=== PATIENT | female | born 1970 | race Caucasian/White ===

== ENCOUNTER 2020-10-01 12:26 | Observation (INO) | payer BC ==
[2020-10-01] MEDS ORDERED: Sodium Chloride 0.9% 1,000 ML IV ONE (12:31)
[2020-10-01] MEDS ORDERED: Sodium Chloride 0.9% 2.5 ML Syringe FLUSH PRN (12:31)
[2020-10-01] MEDS ORDERED: Sodium Chloride 0.9% 10 ML Syringe FLUSH PRN (12:31)
--- NOTE | 2020-10-01 12:45 | EDM.PDOC ---
ED HPI GENERAL MEDICAL PROBLEM - General Chief Complaint: Neuro Symptoms/Deficits Stated Complaint: STROKE Time Seen by Provider: 10/01/20 12:31 - History of Present Illness INITIAL COMMENTS - FREE TEXT/NARRATIVE: HISTORY AND PHYSICAL: History of present illness: This is a 50-year-old female with no significant past medical history who presents ER today by EMS secondary to acute onset of left upper extremity weakness with left facial numbness and hearing loss that started prior to taking a nap earlier today. EMS reports upon their arrival she had a left facial droop as well as weakness to her left upper extremity with inability to grasp with significant pronator drift on the left side. Patient reports that she went to bed last night was feeling well and when she woke up today she was feeling well. She reports that she decided take a nap earlier today when she woke up her symptoms had initiated. Patient denies any recent fevers, shakes, chills, nausea, vomiting, diarrhea, dysuria, frequency, urgency, chest pain, shortness of breath, abdominal pain. Patient denies any weakness to her upper or lower extremities at this time and reports to me that her main symptom is numbness to her left face as well as decreased hearing out of her left ear. Patient denies any history of hypertension, diabetes, liver, lung, kidney, heart, prior strokes, neurological disorders in the past. Patient reports that she did have small amount of alcohol last night usually is not drink very much. Patient denies any drugs. Patient admits to use of tobacco. Review of systems: As per history of present illness and below otherwise all systems reviewed and negative. Past medical history: As per history of present illness and as reviewed below otherwise noncontributory. Surgical history: As per history of present illness and as reviewed below otherwise noncontributory. Social history: No reported history of drug abuse. Family history: As per history of present illness and as reviewed below otherwise noncontribu tory. Physical exam: This patient was seen and evaluated during the 2019 SARS-CoV-2 novel coronavirus pandemic period. Community viral transmission is ongoing at time of this encounter and the emergency department is operating under pandemic response procedures. Constitutional: Patient is oriented to person, place, and time. Appears well- developed and well-nourished. No distress. HEENT: Moist mucous membranes Head: Normocephalic and atraumatic Eyes: Right eye exhibits no discharge. Left eye exhibits no discharge. No scleral icterus Neck: Normal range of motion. No tracheal deviation present. Cardiovascular: Normal rate and regular rhythm. Pulmonary: Effort normal, no respiratory distress. Abdominal: No distention Musculoskeletal: Normal range of motion Neurologic: Alert and oriented to person, place and time. Skin: [place], warm and dry. Psychiatric: Normal mood and affect. Behavior is normal. Judgment and thought content normal. Nursing note and vital signs have been reviewed Neuro: A&Ox3. Cranial nerves II-XII grossly intact, 5/5 strength to bilateral upper and lower extremities, sensation intact to bilateral upper and lower extremities, no nystagmus, PERRLA, EOMI, normal speech, proprioception intact to bilateral lower extremities, normal finger to nose test, gait normal. Patient's speech for the most part is completely normal with occasional episodes of stuttering words but her words appear to be clear without any slurring. Patient reports that she does feel numbness to her left side of her face and that she has decreased hearing from her left ear although she is able to hear. 1a) Level of consciousness: 0=alert; 1=not alert but arousable by minor stimulation; 2=not alert: requires repeated stimulation to attend or is obtunded and requires strong or painful stimulation to make movements; 3=responds only with reflex motor or autonomic effects or totally unresponsive, flaccid and areflexic SCORE 0 1b) LOC questions ("what month is it?", "how old are you?"): 0=answers both correctly; 1=answers one correctly; 2=answers neither correctly SCORE 0 1c) LOC commands (command patient to "open and close your eyes. Machine Biller and release your hand.): 0=performs both correctly; 1=performs one correctly; 2=performs neither correctly SCORE 0 2) Best gaze ("follow my finger"): 0=normal; 1=partial gaze palsy; 2=forced deviation or total gaze paresis SCORE 0 3) Visual brown (use confrontation, finger counting, or visual threat. confront upper/lower quadrants of visual field): 0=no visual loss; 1=partial hemianopsia; 2=complete hemianopsia; 3=bilateral hemianopsia SCORE 0 4) Facial palsy (by words or pantomime, encourage patient to: "Show me your teeth. Raise your eyebrows. Close your eyes."): 0=normal symmetrical movement; 1=minor paralysis (flattened nasolabial fold, asymmetry on smiling); 2=partial paralysis (lower face); 3=complete paralysis SCORE 0 5) Arm motor (alternately position patient's arms. extend each arm with palms down [90 degrees if sitting, 45 degrees if supine] - test each arm in turn and start with nonparetic arm first): 0=no drift; 1=drift (arm falls before 10 seconds); 2=some effort vs. gravity; 3=no effort vs. gravity; 4=no movement; UN (untestable)=amputation or joint fusion SCORE 0 6) Leg motor (alternately position patient's legs. extend each leg [30 degrees, always while supine] - test nonparetic leg first): 0=no drift; 1=drift (leg falls before 5 seconds); 2=some effort vs. gravity; 3= no effort vs. gravity; 4=no movement; UN=amputation or joint fusion SCORE 0 7) Limb ataxia (ask patient [eyes open] to: "touch your finger to your nose. touch your heel to your dickinson"): 0=absent; 1=present in one limb; 2=present in two or more limbs; UN=amputation or joint fusion SCORE 0 8) Sensory (test as many body parts as possible [arms and not hands, legs, trunk, face] for sensation using pinprick or noxious stimuli [in the obtunded or aphasic patient]): 0=normal; 1=mild to moderate sensory loss; 2=severe to total sensory loss SCORE 1 9) Best language (using pictures and a sentence list, ask patient to "describe what you see in this picture. Name the items in this picture. Read these sentences"): 0=no aphasia, 1=mild to moderate aphasia; 2=severe aphasia; 3=mute, global aphasia SCORE 0 10) Dysarthria (using a simple word list, ask patient to: "read these words" or "repeat these words"): 0=normal articulation; 1=mild to moderate dysarthria; 2=severe dysarthria; UN=intubated or other physical barrier SCORE 0 11) Extinction and inattention (sufficient information to determine these scores may have been obtained during the prior testing): 0=no abnormality; 1=visual, tactile, auditory, spatial or personal inattention; 2=profound megan-inattention or extinction to more than one modality SCORE 0 TOTAL NIHSS Score:1 Diagnostics: Therapeutics: [] Assessment and plan: This is a 50-year-old female who presents ER today with signs and symptoms conc erning for possible stroke. Upon patient's arrival to the ED her NIH score was 1 secondary to numbness to her left cheek but otherwise she has a normal neurological exam. Patient had no pronator drift. Patient's [id number] test was normal. Patient has normal rapid alternating motion. Patient's pupils are equally round and reactive to light. Extraocular motions are intact. Patient has no visual field deficits. Patient has no nystagmus. Patient has normal speech pattern. Given EMSs report of weakness to her left upper extremity with a left pronator drift and left facial droop, the patient will initiate a stroke protocol. We will obtain a CT scan of her head along with a CTA of her head and neck given the weakness to her left upper extremity being greater than left lower extremity per EMS report with associated facial droop. Patient's CT scan was reviewed by me prior to the CTA and there is no evidence of acute bleed. Patient has been reevaluated by me. After reevaluating patient, she reports that she was normal when she woke up this morning. She reports that she was experiencing some tingling to the left side of her face yesterday before going to bed. She reports when she woke up she had no new symptoms. She reports that at approximately 9 AM she went back to bed to take a nap and when she woke up she identified her symptoms of left upper extremity weakness as well as left facial numbness. She reports that her symptoms do not last very long and that upon arrival to the ED her weakness had completely resolved. Patient CT scan as well as CTA are negative for any acute pathology. Patient's labs are all normal except for urine drug screen that is positive for methamphetamine and amphetamine. Patient will be admitted for ops under Service of Dr. Pitts Critical Care: The high probability of sudden, clinically significant deterioration in the patient's condition required the highest level of my preparedness to intervene urgently. The services I provided to this patient were to treat and/or prevent clinically significant deterioration. Services included the following: chart data review, reviewing nursing notes and/or old charts, documentation time, mental health consultant collaboration regarding findings and treatment options, medication orders and management, direct patient care, vital sign assessments and ordering, interpreting and reviewing diagnostic studies/lab tests. Aggregate critical care time includes only time during which I was engaged inwork directly related to the patient's care, as described above, whether at the bedside or elsewhere in the Emergency Department. It did not include time spent performing other reported procedures or the services of residents, students, nurses or physician assistants. Critical Care Time: 35 minutes Definitive disposition and diagnosis as appropriate pending reevaluation and review of above. - Related Data Allergies Allergy/AdvReac Type Severity Reaction Status Date / Time Penicillins Allergy Hives Verified 10/01/20 12:28 Home Meds: Home Meds Acetaminophen/HYDROcodone [[place] 325-5 MG] 1 tab PO Q4H PRN #30 tablet 04/13/18 [Rx] Past Medical History HEENT History: Reports: Other (See Below) Other HEENT History: wears glasses Gastrointestinal History: Reports: Other (See Below) Other Gastrointestinal History: occasional heartburn Genitourinary History: Reports: None [employer] History: Reports: Other (See Below) Musculoskeletal History: Reports: Fracture Other Musculoskeletal History: 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 Immunologic History: Reports: Other (See Below) Other Immunologic History: hx MRSA - Past Surgical History Head Surgeries/Procedures: Reports: None Female Surgical History: Reports: Breast Biopsy Other Female Surgeries/Procedures: hx rt breast lumpectomy Dermatological Surgical History: Reports: Other (See Below) ED ROS GENERAL - Review of Systems Review Of Systems: See Below ED EXAM, GENERAL - Physical Exam Exam: See Below Course - Vital Signs Last Recorded V/S: Last Vital Signs Temp 98.2 F 10/01/20 13:15 Pulse 90 10/01/20 13:40 Resp 18 10/01/20 13:40 BP 117/88 10/01/20 13:40 Pulse Ox 98 10/01/20 13:40 - Orders/Labs/Meds Orders: Active Orders 24 hr Category Date Time Status Patient Status [ADT] Routine ADT 10/01/20 13:41 Ordered Assess Neurological Status [RC] ASDIRECTED Care 10/01/20 12:33 Active Bedrest [RC] ASDIRECTED Care 10/01/20 12:33 Active Cardiac Monitoring [RC] . DIRECTED Care 10/01/20 12:33 Active EKG Documentation Completion [RC] AM Care 10/01/20 12:31 Active Height and Weight [RC] UPON Care 10/01/20 12:33 Active Initiate Acute Stroke Protocol [RC] STAT Care 10/01/20 12:33 Active NIH Stroke Scale [RC] ASDIRECTED Care 10/01/20 12:33 Active Nursing Bedside Swallow Screen [RC] ASDIRECTED Care 10/01/20 12:33 Active Oxygen Therapy [RC] ASDIRECTED Care 10/01/20 12:33 Active Stroke Education, General [RC] Click to Edit Care 10/01/20 12:33 Active Vital Signs [RC] Q15M Care 10/01/20 12:33 Active CORONAVIRUS COVID-19 MESERET [MOLEC] Stat Lab 10/01/20 12:31 Ordered UA W/MICROSCOPIC [URIN] Stat Lab 10/01/20 13:01 Results Sodium Chloride 0.9% [Normal Saline] 1,000 ml Med 10/01/20 12:31 Active IV .Bolus Sodium Chloride 0.9% [Saline Flush] Med 10/01/20 12:31 Active 10 ml FLUSH ASDIRECTED PRN Sodium Chloride 0.9% [Saline Flush] Med 10/01/20 12:31 Active 2.5 ml FLUSH ASDIRECTED PRN Saline Lock Insert [OM.PC] Stat Oth 10/01/20 12:31 Ordered Medication Orders Sodium Chloride (Normal Saline) 1,000 mls @ 999 mls/hr IV .Bolus ONE Stop: 10/01/20 13:31 Last Admin: 10/01/20 12:51 Dose: 999 mls/hr Documented by: [id number] Sodium Chloride (Sodium Chloride 0.9% 10 Ml Syringe) 10 ml FLUSH ASDIRECTED PRN PRN Reason: Keep Vein Open Last Admin: 10/01/20 12:51 Dose: 10 ml Documented by: [id number] Sodium Chloride (Sodium Chloride 0.9% 2.5 Ml Syringe) 2.5 ml FLUSH ASDIRECTED PRN PRN Reason: Keep Vein Open Last Admin: 10/01/20 12:51 Dose: 2.5 ml Documented by: [id number] Labs: Laboratory Tests 10/01/20 10/01/20 10/01/20 Range/Units 12:28 12:28 12:28 WBC 5.30 (4.0-11.0) K/uL RBC 4.51 (4.30-5.90) M/uL Hgb 14.4 (12.0-16.0) g/dL Hct 42.0 (36.0-46.0) % MCV 93.1 (80.0-98.0) fL MCH 31.9 (27.0-32.0) pg MCHC 34.3 (31.0-37.0) g/dL RDW Std Deviation 47.1 (28.0-62.0) fl RDW Coeff of Sherry 14 (11.0-15.0) % Plt Count 289 (150-400) K/uL MPV 10.20 (7.40-12.00) fL Neut % (Auto) 57.1 (48.0-80.0) % Lymph % (Auto) 36.2 (16.0-40.0) % [place] % (Auto) 5.7 (0.0-15.0) % Eos % (Auto) 0.8 (0.0-7.0) % Baso % (Auto) 0.2 (0.0-1.5) % Neut # (Auto) 3.0 (1.4-5.7) K/uL Lymph # (Auto) 1.9 (0.6-2.4) K/uL [place] # (Auto) 0.3 (0.0-0.8) K/uL Eos # (Auto) 0.0 (0.0-0.7) K/uL Baso # (Auto) 0.0 (0.0-0.1) K/uL Nucleated RBC % 0.0 /100WBC Nucleated RBCs # 0 K/uL ESR (0-19) mm/hr INR APTT (18.6-31.3) SEC Sodium 140 (136-145) mmol/L Potassium 3.3 L (3.5-5.1) mmol/L Chloride 103 (98-107) mmol/L Carbon Dioxide 23.9 (21.0-32.0) mmol/L BUN 7 (7.0-18.0) mg/dL Creatinine 0.8 (0.6-1.0) mg/dL Est Cr Clr Drug Dosing TNP Estimated GFR (MDRD) > 60.0 ml/min Glucose 139 H (74-106) mg/dL Calcium 8.6 (8.5-10.1) mg/dL Total Bilirubin 0.3 (0.2-1.0) mg/dL AST 36 (15-37) IU/L ALT 44 (14-63) IU/L Alkaline Phosphatase 66 (46-116) U/L Troponin I < 0.050 (0.000-0.056) ng/mL Total Protein 7.0 (6.4-8.2) g/dL Albumin 3.8 (3.4-5.0) g/dL Globulin 3.2 (2.6-4.0) g/dL Albumin/Globulin Ratio 1.2 (0.9-1.6) TSH 3rd Generation 0.82 (0.36-3.74) uIU/mL HCG, Qual NEGATIVE (NEG) Urine Color Urine Appearance Urine pH (5.0-8.0) Ur Specific [place] (1.001-1.035) Urine Protein (NEGATIVE) mg/dL Urine Glucose (UA) (NEGATIVE) mg/dL Urine Ketones (NEGATIVE) mg/dL Urine Occult Blood (NEGATIVE) Urine Nitrite (NEGATIVE) Urine Bilirubin (NEGATIVE) Urine Urobilinogen (<2.0) EU/dL Ur Leukocyte Esterase (NEGATIVE) Urine Opiates Screen (NEGATIVE) Ur Oxycodone Screen (NEGATIVE) Urine Methadone Screen (NEGATIVE) Ur Barbiturates Screen (NEGATIVE) Ur Phencyclidine Scrn (NEGATIVE) Ur Amphetamine Screen (NEGATIVE) U Methamphetamines Scrn (NEGATIVE) U Benzodiazepines Scrn (NEGATIVE) U Cocaine Metab Screen (NEGATIVE) U Marijuana (THC) Screen (NEGATIVE) Ethyl Alcohol 149 mg/dL 10/01/20 10/01/20 10/01/20 Range/Units 12:28 12:28 12:28 WBC (4.0-11.0) K/uL RBC (4.30-5.90) M/uL Hgb (12.0-16.0) g/dL Hct (36.0-46.0) % MCV (80.0-98.0) fL MCH (27.0-32.0) pg MCHC (31.0-37.0) g/dL RDW Std Deviation (28.0-62.0) fl RDW Coeff of Sherry (11.0-15.0) % Plt Count (150-400) K/uL MPV (7.40-12.00) fL Neut % (Auto) (48.0-80.0) % Lymph % (Auto) (16.0-40.0) % [place] % (Auto) (0.0-15.0) % Eos % (Auto) (0.0-7.0) % Baso % (Auto) (0.0-1.5) % Neut # (Auto) (1.4-5.7) K/uL Lymph # (Auto) (0.6-2.4) K/uL [place] # (Auto) (0.0-0.8) K/uL Eos # (Auto) (0.0-0.7) K/uL Baso # (Auto) (0.0-0.1) K/uL Nucleated RBC % /100WBC Nucleated RBCs # K/uL ESR 6 (0-19) mm/hr INR 1.04 APTT 24.0 (18.6-31.3) SEC Sodium (136-145) mmol/L Potassium (3.5-5.1) mmol/L Chloride (98-107) mmol/L Carbon Dioxide (21.0-32.0) mmol/L BUN (7.0-18.0) mg/dL Creatinine (0.6-1.0) mg/dL Est Cr Clr Drug Dosing Estimated GFR (MDRD) ml/min Glucose (74-106) mg/dL Calcium (8.5-10.1) mg/dL Total Bilirubin (0.2-1.0) mg/dL AST (15-37) IU/L ALT (14-63) IU/L Alkaline Phosphatase (46-116) U/L Troponin I (0.000-0.056) ng/mL Total Protein (6.4-8.2) g/dL Albumin (3.4-5.0) g/dL Globulin (2.6-4.0) g/dL Albumin/Globulin Ratio (0.9-1.6) TSH 3rd Generation (0.36-3.74) uIU/mL HCG, Qual (NEG) Urine Color Urine Appearance Urine pH (5.0-8.0) Ur Specific [place] (1.001-1.035) Urine Protein (NEGATIVE) mg/dL Urine Glucose (UA) (NEGATIVE) mg/dL Urine Ketones (NEGATIVE) mg/dL Urine Occult Blood (NEGATIVE) Urine Nitrite (NEGATIVE) Urine Bilirubin (NEGATIVE) Urine Urobilinogen (<2.0) EU/dL Ur Leukocyte Esterase (NEGATIVE) Urine Opiates Screen (NEGATIVE) Ur Oxycodone Screen (NEGATIVE) Urine Methadone Screen (NEGATIVE) Ur Barbiturates Screen (NEGATIVE) Ur Phencyclidine Scrn (NEGATIVE) Ur Amphetamine Screen (NEGATIVE) U Methamphetamines Scrn (NEGATIVE) U Benzodiazepines Scrn (NEGATIVE) U Cocaine Metab Screen (NEGATIVE) U Marijuana (THC) Screen (NEGATIVE) Ethyl Alcohol mg/dL 10/01/20 10/01/20 Range/Units 13:01 13:01 WBC (4.0-11.0) K/uL RBC (4.30-5.90) M/uL Hgb (12.0-16.0) g/dL Hct (36.0-46.0) % MCV (80.0-98.0) fL MCH (27.0-32.0) pg MCHC (31.0-37.0) g/dL RDW Std Deviation (28.0-62.0) fl RDW Coeff of Sherry (11.0-15.0) % Plt Count (150-400) K/uL MPV (7.40-12.00) fL Neut % (Auto) (48.0-80.0) % Lymph % (Auto) (16.0-40.0) % [place] % (Auto) (0.0-15.0) % Eos % (Auto) (0.0-7.0) % Baso % (Auto) (0.0-1.5) % Neut # (Auto) (1.4-5.7) K/uL Lymph # (Auto) (0.6-2.4) K/uL [place] # (Auto) (0.0-0.8) K/uL Eos # (Auto) (0.0-0.7) K/uL Baso # (Auto) (0.0-0.1) K/uL Nucleated RBC % /100WBC Nucleated RBCs # K/uL ESR (0-19) mm/hr INR APTT (18.6-31.3) SEC Sodium (136-145) mmol/L Potassium (3.5-5.1) mmol/L Chloride (98-107) mmol/L Carbon Dioxide (21.0-32.0) mmol/L BUN (7.0-18.0) mg/dL Creatinine (0.6-1.0) mg/dL Est Cr Clr Drug Dosing Estimated GFR (MDRD) ml/min Glucose (74-106) mg/dL Calcium (8.5-10.1) mg/dL Total Bilirubin (0.2-1.0) mg/dL AST (15-37) IU/L ALT (14-63) IU/L Alkaline Phosphatase (46-116) U/L Troponin I (0.000-0.056) ng/mL Total Protein (6.4-8.2) g/dL Albumin (3.4-5.0) g/dL Globulin (2.6-4.0) g/dL Albumin/Globulin Ratio (0.9-1.6) TSH 3rd Generation (0.36-3.74) uIU/mL HCG, Qual (NEG) Urine Color YELLOW Urine Appearance HAZY Urine pH 6.5 (5.0-8.0) Ur Specific [place] <= 1.005 (1.001-1.035) Urine Protein NEGATIVE (NEGATIVE) mg/dL Urine Glucose (UA) NEGATIVE (NEGATIVE) mg/dL Urine Ketones NEGATIVE (NEGATIVE) mg/dL Urine Occult Blood MODERATE H (NEGATIVE) Urine Nitrite NEGATIVE (NEGATIVE) Urine Bilirubin NEGATIVE (NEGATIVE) Urine Urobilinogen 0.2 (<2.0) EU/dL Ur Leukocyte Esterase NEGATIVE (NEGATIVE) Urine Opiates Screen NEGATIVE (NEGATIVE) Ur Oxycodone Screen NEGATIVE (NEGATIVE) Urine Methadone Screen NEGATIVE (NEGATIVE) Ur Barbiturates Screen NEGATIVE (NEGATIVE) Ur Phencyclidine Scrn NEGATIVE (NEGATIVE) Ur Amphetamine Screen POSITIVE (NEGATIVE) U Methamphetamines Scrn POSITIVE (NEGATIVE) U Benzodiazepines Scrn NEGATIVE (NEGATIVE) U Cocaine Metab Screen NEGATIVE (NEGATIVE) U Marijuana (THC) Screen NEGATIVE (NEGATIVE) Ethyl Alcohol mg/dL Meds: Medications Generic Name Dose Route Start Last Admin Trade Name Freq PRN Reason Stop Dose Admin Sodium Chloride 1,000 mls @ 999 mls/hr 10/01/20 12:31 10/01/20 12:51 Normal Saline IV 10/01/20 13:31 999 mls/hr .Bolus ONE Administration Sodium Chloride 10 ml 10/01/20 12:31 10/01/20 12:51 Sodium Chloride 0.9% 10 Ml Syringe FLUSH 10 ml ASDIRECTED PRN Administration Keep Vein Open Sodium Chloride 2.5 ml 10/01/20 12:31 10/01/20 12:51 Sodium Chloride 0.9% 2.5 Ml Syringe FLUSH 2.5 ml ASDIRECTED PRN Administration Keep Vein Open Departure - Departure Time of Disposition: 13:43 Disposition: Refer to Observation Condition: Good Clinical Impression: Methamphetamine abuse Stroke Qualifiers: CVA mechanism: unspecified Qualified Code(s): I63.9 - Cerebral infarction, unspecified - Discharge Information Forms: ED Department Discharge Sepsis Event Note (ED) - Evaluation Sepsis Screening Result: No Definite Risk - Focused Exam Vital Signs: Vital Signs Temp Pulse Resp BP Pulse Ox Pulse Ox 10/01/20 13:40 90 18 117/88 98 10/01/20 13:15 98.2 F 90 18 120/87 98 10/01/20 13:10 99 10/01/20 13:00 98.2 F 84 18 138/72 98 10/01/20 12:40 88 18 105/72 98 10/01/20 12:26 97.4 F 123 H 18 151/71 H 96 - My Orders Last 24 Hours: My Active Orders 10/01/20 12:31 EKG Documentation Completion [RC] AM CORONAVIRUS COVID-19 MESERET [MOLEC] Stat Sodium Chloride 0.9% [Normal Saline] 1,000 ml IV .Bolus Sodium Chloride 0.9% [Saline Flush] 10 ml FLUSH ASDIRECTED PRN Sodium Chloride 0.9% [Saline Flush] 2.5 ml FLUSH ASDIRECTED PRN Saline Lock Insert [OM.PC] Stat 10/01/20 12:33 Assess Neurological Status [RC] ASDIRECTED Bedrest [RC] ASDIRECTED Cardiac Monitoring [RC] . DIRECTED Height and Weight [RC] UPON Initiate Acute Stroke Protocol [RC] STAT NIH Stroke Scale [RC] ASDIRECTED Nursing Bedside Swallow Screen [RC] ASDIRECTED Oxygen Therapy [RC] ASDIRECTED Stroke Education, General [RC] Click to Edit Vital Signs [RC] Q15M 10/01/20 13:01 UA W/MICROSCOPIC [URIN] Stat 10/01/20 13:41 Patient Status [ADT] Routine - Assessment/Plan Last 24 Hours: My Active Orders 10/01/20 12:31 EKG Documentation Completion [RC] AM CORONAVIRUS COVID-19 MESERET [MOLEC] Stat Sodium Chloride 0.9% [Normal Saline] 1,000 ml IV .Bolus Sodium Chloride 0.9% [Saline Flush] 10 ml FLUSH ASDIRECTED PRN Sodium Chloride 0.9% [Saline Flush] 2.5 ml FLUSH ASDIRECTED PRN Saline Lock Insert [OM.PC] Stat 10/01/20 12:33 Assess Neurological Status [RC] ASDIRECTED Bedrest [RC] ASDIRECTED Cardiac Monitoring [RC] . DIRECTED Height and Weight [RC] UPON Initiate Acute Stroke Protocol [RC] STAT NIH Stroke Scale [RC] ASDIRECTED Nursing Bedside Swallow Screen [RC] ASDIRECTED Oxygen Therapy [RC] ASDIRECTED Stroke Education, General [RC] Click to Edit Vital Signs [RC] Q15M 10/01/20 13:01 UA W/MICROSCOPIC [URIN] Stat 10/01/20 13:41 Patient Status [ADT] Routine
--- NOTE | 2020-10-01 12:58 | CT ---
INDICATION: Left-sided facial numbness COMPARISON: None TECHNIQUE: CT examination of the head was performed as axial sections without intravenous contrast. Images were obtained from the vertex of the skull through the skull base. Please note that all CT scans at this facility use dose modulation, iterative reconstruction, and/or weight-based dosing when appropriate to reduce radiation dose to as low as reasonably achievable. FINDINGS: The brain shows no sign of mass lesion, mass effect, hemorrhage, or edema. The ventricles and sulci are normal in appearance for the patient`s age. The visualized portions of the orbits are normal in appearance. The osseous structures are normal in their appearance with no sign of abnormality in the skull base or calvarium. IMPRESSION: Normal unenhanced head CT. Please note that all CT scans at this facility use dose modulation, iterative reconstruction, and/or weight-based dosing when appropriate to reduce radiation dose to as low as reasonably achievable. Dictated by Ralph Dallas MD @ 10/01/2020 12:58:[address] Ralph Dallas @ Oct 01 2020 12:58PM
[2020-10-01 13:10] LABS: BLOOD UREA NITROGEN,BUN 7 mg/dL (7.0-18.0); CARBON DIOXIDE,CO2 23.9 mmol/L (21.0-32.0); CHLORIDE,CL 103 mmol/L (98-107); GLUCOSE RANDOM 139 mg/dL (74-106); POTASSIUM,K 3.3 mmol/L (3.5-5.1); SODIUM,NA 140 mmol/L (136-145)
--- NOTE | 2020-10-01 13:15 | CT ---
DATE: 10/01/2020 CLINICAL HISTORY: Patient with left-sided numbness. TECHNIQUE: Standard helical CT image acquisition through the head and neck was performed after intravenous contrast bolus enhancement. Multiplanar reconstructed images were performed and interpreted. COMPARISON: CT same day FINDINGS: There is no proximal intracranial large vessel occlusion. There is an incidental 2.5mm left proximal cavernous ICA aneurysm. The origins of the great vessels from the aortic arch are patent. The origin of the right vertebral artery is patent. The origin of the left vertebral artery is patent. The common carotid arteries are patent There is no stenosis at the origin of the right internal carotid artery. There is no stenosis at the origin of the left internal carotid artery. The rest of the cervical segments of the internal carotid arteries are patent up to their intracranial segments. The intracranial segments of the internal carotid arteries are patent. The left vertebral artery is dominant. The cervical segments of the vertebral arteries are patent. The intracranial segments of the vertebral arteries are patent. The middle cerebral arteries are normal without aneurysm or proximal occlusion identified. The anterior cerebral arteries are normal without aneurysm or proximal occlusion identified. The anterior communicating artery is well visualized and appears normal. The basilar artery is normal without aneurysm or occlusion. The posterior cerebral arteries are normal without aneurysm or proximal occlusion. There is normal opacification of major intracranial venous structures. The visualized lung apices are unremarkable The thyroid gland is unremarkable. The soft tissues of the neck are unremarkable. There are degenerative changes in the cervical spine. IMPRESSION: 1. No proximal intracranial large vessel occlusion. 2. Patent cervical vasculature. 3. Incidental 2.5mm left proximal cavernous ICA aneurysm. Telehealth consultation with [facility] team for enrollment in our long-term aneurysm surveillance program can be arranged by calling . Please note that all CT scans at this facility use dose modulation, iterative reconstruction, and/or weight-based dosing when appropriate to reduce radiation dose to as low as reasonably achievable. Dictated by Asia Hays MD @ 10/01/2020 1:13:[address] Asia Hays @ Oct 01 2020 1:13PM
--- NOTE | 2020-10-01 13:15 | CT ---
DATE: 10/01/2020 CLINICAL HISTORY: Patient with left-sided numbness. TECHNIQUE: Standard helical CT image acquisition through the head and neck was performed after intravenous contrast bolus enhancement. Multiplanar reconstructed images were performed and interpreted. COMPARISON: CT same day FINDINGS: There is no proximal intracranial large vessel occlusion. There is an incidental 2.5mm left proximal cavernous ICA aneurysm. The origins of the great vessels from the aortic arch are patent. The origin of the right vertebral artery is patent. The origin of the left vertebral artery is patent. The common carotid arteries are patent There is no stenosis at the origin of the right internal carotid artery. There is no stenosis at the origin of the left internal carotid artery. The rest of the cervical segments of the internal carotid arteries are patent up to their intracranial segments. The intracranial segments of the internal carotid arteries are patent. The left vertebral artery is dominant. The cervical segments of the vertebral arteries are patent. The intracranial segments of the vertebral arteries are patent. The middle cerebral arteries are normal without aneurysm or proximal occlusion identified. The anterior cerebral arteries are normal without aneurysm or proximal occlusion identified. The anterior communicating artery is well visualized and appears normal. The basilar artery is normal without aneurysm or occlusion. The posterior cerebral arteries are normal without aneurysm or proximal occlusion. There is normal opacification of major intracranial venous structures. The visualized lung apices are unremarkable The thyroid gland is unremarkable. The soft tissues of the neck are unremarkable. There are degenerative changes in the cervical spine. IMPRESSION: 1. No proximal intracranial large vessel occlusion. 2. Patent cervical vasculature. 3. Incidental 2.5mm left proximal cavernous ICA aneurysm. Telehealth consultation with [facility] team for enrollment in our long-term aneurysm surveillance program can be arranged by calling . Please note that all CT scans at this facility use dose modulation, iterative reconstruction, and/or weight-based dosing when appropriate to reduce radiation dose to as low as reasonably achievable. Dictated by Asia Hays MD @ 10/01/2020 1:13:[address] Asia Hays @ Oct 01 2020 1:13PM
--- NOTE | 2020-10-01 13:21 | CR ---
INDICATION: Stroke-like symptoms. TECHNIQUE: Chest 1 view. COMPARISON: Chest radiograph 10/10/2018. FINDINGS: No focal consolidation, pleural effusion, or pneumothorax. Mild reticular opacities in the lung bases bilaterally. Normal heart size and pulmonary vascularity. The bones are unremarkable. IMPRESSION: Mild reticular opacities in the lung bases bilaterally. Dictated by Eli Galindo MD @ 10/01/2020 1:21:[address] Eli Galindo @ Oct 01 2020 1:21PM
[2020-10-01] MEDS ORDERED: Potassium Chloride 20 MEQ Tab.ER PO ONE (14:06)
[2020-10-01] MEDS ORDERED: Ondansetron 4 MG/2 ML SDV IVPUSH PRN (14:07)
--- NOTE | 2020-10-01 14:11 | PCM.HP.2 ---
H&P History of Present Illness - General Date of Service: 10/01/20 Admit Problem/Dx: Admission Diagnosis/Problem Admission Diagnosis/Problem Stroke of unknown etiology - History of Present Illness Initial Comments - Free Text/Narative: 50 yo female who presents with complaint of left facial numbness, left arm wea kness and decreased hearing of left ear. Patient reports having a stressful day and drinking a pint of liqour yesterday. 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 She woke up with numbness and tingling of her left face and arm. Her symptoms have since resolved on arrival to ER. Patient also reports nausea but denies any abdominal pain, fever or diarrhea. 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 Exam - Exam Exam: See Below - Vital Signs Vital Signs: Last Vital Signs Temp 36.8 C 10/01/20 13:15 Pulse 90 10/01/20 13:40 Resp 18 10/01/20 13:40 BP 117/88 10/01/20 13:40 Pulse Ox 98 10/01/20 13:40 Weight: 67.132 kg - Exam General: Alert, Oriented HEENT: Mucosa Moist & [place] Neck: Supple Lungs: Clear to Auscultation, Normal Respiratory Effort Cardiovascular: Regular Rate, Regular Rhythm GI/Abdominal Exam: Normal Bowel Sounds, Soft, Non-Tender Extremities: Non-Tender, No Pedal Edema Skin: Warm, Dry, Intact Neurological: Cranial Nerves Intact, Reflexes Equal Bilateral, Strength Equal Bilateral, Normal Speech, Normal Tone, Sensation Intact. No: Focal Deficit - Patient Data Lab Results Last 24 hrs: Laboratory Results - last 24 hr 10/01/20 10/01/20 10/01/20 Range/Units 12:28 12:28 12:28 WBC 5.30 (4.0-11.0) K/uL RBC 4.51 (4.30-5.90) M/uL Hgb 14.4 (12.0-16.0) g/dL Hct 42.0 (36.0-46.0) % MCV 93.1 (80.0-98.0) fL MCH 31.9 (27.0-32.0) pg MCHC 34.3 (31.0-37.0) g/dL RDW Std Deviation 47.1 (28.0-62.0) fl RDW Coeff of Sherry 14 (11.0-15.0) % Plt Count 289 (150-400) K/uL MPV 10.20 (7.40-12.00) fL Neut % (Auto) 57.1 (48.0-80.0) % Lymph % (Auto) 36.2 (16.0-40.0) % [place] % (Auto) 5.7 (0.0-15.0) % Eos % (Auto) 0.8 (0.0-7.0) % Baso % (Auto) 0.2 (0.0-1.5) % Neut # (Auto) 3.0 (1.4-5.7) K/uL Lymph # (Auto) 1.9 (0.6-2.4) K/uL [place] # (Auto) 0.3 (0.0-0.8) K/uL Eos # (Auto) 0.0 (0.0-0.7) K/uL Baso # (Auto) 0.0 (0.0-0.1) K/uL Nucleated RBC % 0.0 /100WBC Nucleated RBCs # 0 K/uL ESR (0-19) mm/hr INR APTT (18.6-31.3) SEC Sodium 140 (136-145) mmol/L Potassium 3.3 L (3.5-5.1) mmol/L Chloride 103 (98-107) mmol/L Carbon Dioxide 23.9 (21.0-32.0) mmol/L BUN 7 (7.0-18.0) mg/dL Creatinine 0.8 (0.6-1.0) mg/dL Est Cr Clr Drug Dosing TNP Estimated GFR (MDRD) > 60.0 ml/min Glucose 139 H (74-106) mg/dL Calcium 8.6 (8.5-10.1) mg/dL Total Bilirubin 0.3 (0.2-1.0) mg/dL AST 36 (15-37) IU/L ALT 44 (14-63) IU/L Alkaline Phosphatase 66 (46-116) U/L Troponin I < 0.050 (0.000-0.056) ng/mL Total Protein 7.0 (6.4-8.2) g/dL Albumin 3.8 (3.4-5.0) g/dL Globulin 3.2 (2.6-4.0) g/dL Albumin/Globulin Ratio 1.2 (0.9-1.6) TSH 3rd Generation 0.82 (0.36-3.74) uIU/mL HCG, Qual NEGATIVE (NEG) Urine Color Urine Appearance Urine pH (5.0-8.0) Ur Specific [place] (1.001-1.035) Urine Protein (NEGATIVE) mg/dL Urine Glucose (UA) (NEGATIVE) mg/dL Urine Ketones (NEGATIVE) mg/dL Urine Occult Blood (NEGATIVE) Urine Nitrite (NEGATIVE) Urine Bilirubin (NEGATIVE) Urine Urobilinogen (<2.0) EU/dL Ur Leukocyte Esterase (NEGATIVE) Urine RBC (0-2/HPF) Urine WBC (0-5/HPF) Ur Epithelial Cells (NONE-FEW) Urine Bacteria (NEGATIVE) Urine Mucus (NONE-MOD) Urine Opiates Screen (NEGATIVE) Ur Oxycodone Screen (NEGATIVE) Urine Methadone Screen (NEGATIVE) Ur Barbiturates Screen (NEGATIVE) Ur Phencyclidine Scrn (NEGATIVE) Ur Amphetamine Screen (NEGATIVE) U Methamphetamines Scrn (NEGATIVE) U Benzodiazepines Scrn (NEGATIVE) U Cocaine Metab Screen (NEGATIVE) U Marijuana (THC) Screen (NEGATIVE) Ethyl Alcohol 149 mg/dL 10/01/20 10/01/20 10/01/20 Range/Units 12:28 12:28 12:28 WBC (4.0-11.0) K/uL RBC (4.30-5.90) M/uL Hgb (12.0-16.0) g/dL Hct (36.0-46.0) % MCV (80.0-98.0) fL MCH (27.0-32.0) pg MCHC (31.0-37.0) g/dL RDW Std Deviation (28.0-62.0) fl RDW Coeff of Sherry (11.0-15.0) % Plt Count (150-400) K/uL MPV (7.40-12.00) fL Neut % (Auto) (48.0-80.0) % Lymph % (Auto) (16.0-40.0) % [place] % (Auto) (0.0-15.0) % Eos % (Auto) (0.0-7.0) % Baso % (Auto) (0.0-1.5) % Neut # (Auto) (1.4-5.7) K/uL Lymph # (Auto) (0.6-2.4) K/uL [place] # (Auto) (0.0-0.8) K/uL Eos # (Auto) (0.0-0.7) K/uL Baso # (Auto) (0.0-0.1) K/uL Nucleated RBC % /100WBC Nucleated RBCs # K/uL ESR 6 (0-19) mm/hr INR 1.04 APTT 24.0 (18.6-31.3) SEC Sodium (136-145) mmol/L Potassium (3.5-5.1) mmol/L Chloride (98-107) mmol/L Carbon Dioxide (21.0-32.0) mmol/L BUN (7.0-18.0) mg/dL Creatinine (0.6-1.0) mg/dL Est Cr Clr Drug Dosing Estimated GFR (MDRD) ml/min Glucose (74-106) mg/dL Calcium (8.5-10.1) mg/dL Total Bilirubin (0.2-1.0) mg/dL AST (15-37) IU/L ALT (14-63) IU/L Alkaline Phosphatase (46-116) U/L Troponin I (0.000-0.056) ng/mL Total Protein (6.4-8.2) g/dL Albumin (3.4-5.0) g/dL Globulin (2.6-4.0) g/dL Albumin/Globulin Ratio (0.9-1.6) TSH 3rd Generation (0.36-3.74) uIU/mL HCG, Qual (NEG) Urine Color Urine Appearance Urine pH (5.0-8.0) Ur Specific [place] (1.001-1.035) Urine Protein (NEGATIVE) mg/dL Urine Glucose (UA) (NEGATIVE) mg/dL Urine Ketones (NEGATIVE) mg/dL Urine Occult Blood (NEGATIVE) Urine Nitrite (NEGATIVE) Urine Bilirubin (NEGATIVE) Urine Urobilinogen (<2.0) EU/dL Ur Leukocyte Esterase (NEGATIVE) Urine RBC (0-2/HPF) Urine WBC (0-5/HPF) Ur Epithelial Cells (NONE-FEW) Urine Bacteria (NEGATIVE) Urine Mucus (NONE-MOD) Urine Opiates Screen (NEGATIVE) Ur Oxycodone Screen (NEGATIVE) Urine Methadone Screen (NEGATIVE) Ur Barbiturates Screen (NEGATIVE) Ur Phencyclidine Scrn (NEGATIVE) Ur Amphetamine Screen (NEGATIVE) U Methamphetamines Scrn (NEGATIVE) U Benzodiazepines Scrn (NEGATIVE) U Cocaine Metab Screen (NEGATIVE) U Marijuana (THC) Screen (NEGATIVE) Ethyl Alcohol mg/dL 10/01/20 10/01/20 Range/Units 13:01 13:01 WBC (4.0-11.0) K/uL RBC (4.30-5.90) M/uL Hgb (12.0-16.0) g/dL Hct (36.0-46.0) % MCV (80.0-98.0) fL MCH (27.0-32.0) pg MCHC (31.0-37.0) g/dL RDW Std Deviation (28.0-62.0) fl RDW Coeff of Sherry (11.0-15.0) % Plt Count (150-400) K/uL MPV (7.40-12.00) fL Neut % (Auto) (48.0-80.0) % Lymph % (Auto) (16.0-40.0) % [place] % (Auto) (0.0-15.0) % Eos % (Auto) (0.0-7.0) % Baso % (Auto) (0.0-1.5) % Neut # (Auto) (1.4-5.7) K/uL Lymph # (Auto) (0.6-2.4) K/uL [place] # (Auto) (0.0-0.8) K/uL Eos # (Auto) (0.0-0.7) K/uL Baso # (Auto) (0.0-0.1) K/uL Nucleated RBC % /100WBC Nucleated RBCs # K/uL ESR (0-19) mm/hr INR APTT (18.6-31.3) SEC Sodium (136-145) mmol/L Potassium (3.5-5.1) mmol/L Chloride (98-107) mmol/L Carbon Dioxide (21.0-32.0) mmol/L BUN (7.0-18.0) mg/dL Creatinine (0.6-1.0) mg/dL Est Cr Clr Drug Dosing Estimated GFR (MDRD) ml/min Glucose (74-106) mg/dL Calcium (8.5-10.1) mg/dL Total Bilirubin (0.2-1.0) mg/dL AST (15-37) IU/L ALT (14-63) IU/L Alkaline Phosphatase (46-116) U/L Troponin I (0.000-0.056) ng/mL Total Protein (6.4-8.2) g/dL Albumin (3.4-5.0) g/dL Globulin (2.6-4.0) g/dL Albumin/Globulin Ratio (0.9-1.6) TSH 3rd Generation (0.36-3.74) uIU/mL HCG, Qual (NEG) Urine Color YELLOW Urine Appearance HAZY Urine pH 6.5 (5.0-8.0) Ur Specific [place] <= 1.005 (1.001-1.035) Urine Protein NEGATIVE (NEGATIVE) mg/dL Urine Glucose (UA) NEGATIVE (NEGATIVE) mg/dL Urine Ketones NEGATIVE (NEGATIVE) mg/dL Urine Occult Blood MODERATE H (NEGATIVE) Urine Nitrite NEGATIVE (NEGATIVE) Urine Bilirubin NEGATIVE (NEGATIVE) Urine Urobilinogen 0.2 (<2.0) EU/dL Ur Leukocyte Esterase NEGATIVE (NEGATIVE) Urine RBC 3-6 (0-2/HPF) Urine WBC 0-2 (0-5/HPF) Ur Epithelial Cells FEW (NONE-FEW) Urine Bacteria FEW (NEGATIVE) Urine Mucus LIGHT (NONE-MOD) Urine Opiates Screen NEGATIVE (NEGATIVE) Ur Oxycodone Screen NEGATIVE (NEGATIVE) Urine Methadone Screen NEGATIVE (NEGATIVE) Ur Barbiturates Screen NEGATIVE (NEGATIVE) Ur Phencyclidine Scrn NEGATIVE (NEGATIVE) Ur Amphetamine Screen POSITIVE (NEGATIVE) U Methamphetamines Scrn POSITIVE (NEGATIVE) U Benzodiazepines Scrn NEGATIVE (NEGATIVE) U Cocaine Metab Screen NEGATIVE (NEGATIVE) U Marijuana (THC) Screen NEGATIVE (NEGATIVE) Ethyl Alcohol mg/dL Result Diagrams: 10/02/20 05:31 10/02/20 05:31 Sepsis Event Note - Evaluation Sepsis Screening Result: No Definite Risk - Focused Exam Vital Signs: Vital Signs Temp Pulse Resp BP Pulse Ox Pulse Ox 10/01/20 13:40 90 18 117/88 98 10/01/20 13:15 36.8 C 90 18 120/87 98 10/01/20 13:10 99 10/01/20 13:00 36.8 C 84 18 138/72 98 10/01/20 12:40 88 18 105/72 98 10/01/20 12:26 36.3 C 123 H 18 151/71 H 96 Problem List Initiated/Reviewed/Updated: Yes Orders Last 24hrs: Active Orders 24 hr Category Date Time Status Patient Status [ADT] Routine ADT 10/01/20 13:41 Active Antiembolic Devices [RC] PER UNIT ROUTINE Care 10/01/20 14:08 Ordered Assess Neurological Status [RC] ASDIRECTED Care 10/01/20 12:33 Active Bedrest [RC] ASDIRECTED Care 10/01/20 12:33 Active Cardiac Monitoring [RC] . DIRECTED Care 10/01/20 12:33 Active EKG Documentation Completion [RC] AM Care 10/01/20 12:31 Active Height and Weight [RC] UPON Care 10/01/20 12:33 Active Initiate Acute Stroke Protocol [RC] STAT Care 10/01/20 12:33 Active NIH Stroke Scale [RC] ASDIRECTED Care 10/01/20 12:33 Active Nursing Bedside Swallow Screen [RC] ASDIRECTED Care 10/01/20 12:33 Active Oxygen Therapy [RC] ASDIRECTED Care 10/01/20 12:33 Active Oxygen Therapy [RC] PRN Care 10/01/20 14:07 Ordered Stroke Education, General [RC] Click to Edit Care 10/01/20 12:33 Active Up ad Breana [RC] ASDIRECTED Care 10/01/20 14:07 Ordered VTE/DVT Education [RC] PER UNIT ROUTINE Care 10/01/20 14:07 Ordered Vital Signs [RC] Q15M Care 10/01/20 12:33 Active Vital Signs [RC] Q4H Care 10/01/20 14:07 Ordered Regular Diet [DIET] Diet 10/01/20 Breakfast Ordered Brain w wo Cont [MR] Stat Exams 10/01/20 14:06 Ordered CBC WITH AUTO DIFF [HEME] AM Lab 10/02/20 05:11 Ordered COMPREHENSIVE METABOLIC PN,CMP [CHEM] AM Lab 10/02/20 05:11 Ordered CORONAVIRUS COVID-19 MESERET [MOLEC] Stat Lab 10/01/20 12:31 Ordered MAGNESIUM [CHEM] Stat Lab 10/01/20 14:06 Ordered Ondansetron [Zofran] Med 10/01/20 14:07 Ordered 4 mg IVPUSH Q4H PRN Sodium Chloride 0.9% @ 125 MLS/HR (1000ml) Med 10/01/20 14:15 Ordered Sodium Chloride 0.9% [Normal Saline] 1,000 ml IV ASDIRECTED Sodium Chloride 0.9% [Saline Flush] Med 10/01/20 12:31 Active 10 ml FLUSH ASDIRECTED PRN Sodium Chloride 0.9% [Saline Flush] Med 10/01/20 12:31 Active 2.5 ml FLUSH ASDIRECTED PRN Saline Lock Insert [OM.PC] Stat Oth 10/01/20 12:31 Ordered Sequential Compression Device [OM.PC] Per Unit Routine Oth 10/01/20 14:07 Ordered Resuscitation Status Routine Resus Stat 10/01/20 14:07 Ordered Medication Orders Sodium Chloride (Normal Saline) 1,000 mls @ 125 mls/hr IV ASDIRECTED TIERRA Stop: 10/01/20 22:14 Ondansetron HCl (Ondansetron 4 Mg/2 Ml Sdv) 4 mg IVPUSH Q4H PRN PRN Reason: Nausea Sodium Chloride (Sodium Chloride 0.9% 10 Ml Syringe) 10 ml FLUSH ASDIRECTED PRN PRN Reason: Keep Vein Open Last Admin: 10/01/20 12:51 Dose: 10 ml Documented by: [id number] Sodium Chloride (Sodium Chloride 0.9% 2.5 Ml Syringe) 2.5 ml FLUSH ASDIRECTED PRN PRN Reason: Keep Vein Open Last Admin: 10/01/20 12:51 Dose: 2.5 ml Documented by: [id number] Assessment/Plan Comment:: 50 yo female admitted for paraesthesias. We will get MRI of brain. Patient is likely dehydrated from ETOH use. Will monitor overnight on telemetry.
[2020-10-01] MEDS ORDERED: Sodium Chloride 0.9% 1,000 ML IV SCH (14:15)
[2020-10-01] MEDS ORDERED: Gadobenate Dimeglumine 529 MG/ML 20 ML SDV IVPUSH STA (14:29)
[2020-10-01] MEDS ORDERED: Iopamidol 755 MG/ML 500 ML Multipack Bottle IVPUSH STA (14:45)
[2020-10-01] MEDS: Thiamine 200 MG/2 ML MDV IVPUSH SCH (15:09)
--- NOTE | 2020-10-01 15:23 | MR ---
Indication: Left facial numbness. Technique: T1 sagittal as well as diffusion, FLAIR and T2 axial sequences were obtained. Post gadolinium T1 sequences were obtained. Contrast: 13 cc MultiHance. Comparison: None are available. Findings: The study is degraded by patient motion artifact, particularly the gadolinium-enhanced sequences. No evidence for recent or remote infarct or hemorrhage. No intracranial mass effect. No ventricular obstruction. No signal changes in the brain parenchyma. No skullbase pathology is identified on this study No gross evidence for abnormal intracranial IV gadolinium enhancement. Grossly normal flow voids are maintained in the directly imaged intracranial vascular structures. The craniovertebral junction is unremarkable, with a patent foramen magnum. Both temporal bones are clear. There is some membrane thickening in the right ethmoid and left frontal paranasal sinuses. Impression: 1. The gadolinium-enhanced sequences are considerably degraded by patient motion. 2. Examination otherwise unremarkable. No brainstem, skull base or basal cistern pathology is identified on this exam. Dictated by Jonas Paredes MD @ 10/01/2020 3:22:[address] Jonas Paredes @ Oct 01 2020 3:22PM
--- NOTE | 2020-10-01 15:28 | PCM.EKG ---
#1 Interpretation EKG Interpretation Comments: EKG: As interpreted by ER physician: Jamel: Nonspecific ST-T wave abnormalities Normal axis No evidence of ST elevation [place] Normal sinus rhythm heart rate of 87
[2020-10-02 06:25] LABS: BLOOD UREA NITROGEN,BUN 5 mg/dL (7.0-18.0); CARBON DIOXIDE,CO2 22.6 mmol/L (21.0-32.0); CHLORIDE,CL 104 mmol/L (98-107); GLUCOSE RANDOM 67 mg/dL (74-106); POTASSIUM,K 3.6 mmol/L (3.5-5.1); SODIUM,NA 138 mmol/L (136-145)
[2020-10-02] MEDS: Thiamine 200 MG/2 ML MDV IVPUSH SCH (08:49)
--- NOTE | 2020-10-02 11:34 | PCM.DCSUM1 ---
Discharge Summary - Discharge Data Discharge Date: 10/02/20 Discharge Disposition: Home, Self-Care 01 Condition: Stable - Referral to Home Health Primary Care Physician: Jeremie Lopez MD - Patient Summary/Data Hospital Course: 50 yo female who was admitted for work up of paresthesias. She woke up with left facial numbness, left arm weakness and decreased hearing of left ear. She had been drinking liquor the night prior and also relapsed on meth. On admission her symptoms had resolved. CT scan and MRI of head and brain were unremarkable. Patient was monitored on telemetry without any events. She and her sons wer informed of an incidental small left ICA aneurysms seen on the CT angio of the head and neck and the potential need for follow up. She is to follow up with Dr. Lopez. - Patient Instructions Diet: Regular Diet as Tolerated, No Alcoholic Beverages - Discharge Plan Forms: ED Department Discharge Referrals: Jeremie Lopez MD [Primary Care Provider] - 10/15/20 8:00 am - Discharge Summary/Plan Comment DC Time >30 min.: No - Patient Data Vitals - Most Recent: Last Vital Signs Temp 36.2 C 10/02/20 07:46 Pulse 82 10/02/20 07:46 Resp 22 H 10/02/20 07:46 BP 124/78 10/02/20 07:46 Pulse Ox 96 10/02/20 07:46 Weight - Most Recent: 68.4 kg I&O - Last 24 hours: Intake & Output 10/01/20 10/02/20 10/02/20 22:59 06:59 14:59 Intake Total 400 Balance 400 Lab Results - Last 24 hrs: Laboratory Results - last 24 hr 10/01/20 10/01/20 10/01/20 Range/Units 12:28 12:28 12:28 WBC 5.30 (4.0-11.0) K/uL RBC 4.51 (4.30-5.90) M/uL Hgb 14.4 (12.0-16.0) g/dL Hct 42.0 (36.0-46.0) % MCV 93.1 (80.0-98.0) fL MCH 31.9 (27.0-32.0) pg MCHC 34.3 (31.0-37.0) g/dL RDW Std Deviation 47.1 (28.0-62.0) fl RDW Coeff of Sherry 14 (11.0-15.0) % Plt Count 289 (150-400) K/uL MPV 10.20 (7.40-12.00) fL Neut % (Auto) 57.1 (48.0-80.0) % Lymph % (Auto) 36.2 (16.0-40.0) % [place] % (Auto) 5.7 (0.0-15.0) % Eos % (Auto) 0.8 (0.0-7.0) % Baso % (Auto) 0.2 (0.0-1.5) % Neut # (Auto) 3.0 (1.4-5.7) K/uL Lymph # (Auto) 1.9 (0.6-2.4) K/uL [place] # (Auto) 0.3 (0.0-0.8) K/uL Eos # (Auto) 0.0 (0.0-0.7) K/uL Baso # (Auto) 0.0 (0.0-0.1) K/uL Nucleated RBC % 0.0 /100WBC Nucleated RBCs # 0 K/uL ESR (0-19) mm/hr INR APTT (18.6-31.3) SEC Sodium 140 (136-145) mmol/L Potassium 3.3 L (3.5-5.1) mmol/L Chloride 103 (98-107) mmol/L Carbon Dioxide 23.9 (21.0-32.0) mmol/L BUN 7 (7.0-18.0) mg/dL Creatinine 0.8 (0.6-1.0) mg/dL Est Cr Clr Drug Dosing TNP Estimated GFR (MDRD) > 60.0 ml/min Glucose 139 H (74-106) mg/dL Calcium 8.6 (8.5-10.1) mg/dL Magnesium (1.8-2.4) mg/dL Total Bilirubin 0.3 (0.2-1.0) mg/dL AST 36 (15-37) IU/L ALT 44 (14-63) IU/L Alkaline Phosphatase 66 (46-116) U/L Troponin I < 0.050 (0.000-0.056) ng/mL Total Protein 7.0 (6.4-8.2) g/dL Albumin 3.8 (3.4-5.0) g/dL Globulin 3.2 (2.6-4.0) g/dL Albumin/Globulin Ratio 1.2 (0.9-1.6) TSH 3rd Generation 0.82 (0.36-3.74) uIU/mL HCG, Qual NEGATIVE (NEG) Urine Color Urine Appearance Urine pH (5.0-8.0) Ur Specific [place] (1.001-1.035) Urine Protein (NEGATIVE) mg/dL Urine Glucose (UA) (NEGATIVE) mg/dL Urine Ketones (NEGATIVE) mg/dL Urine Occult Blood (NEGATIVE) Urine Nitrite (NEGATIVE) Urine Bilirubin (NEGATIVE) Urine Urobilinogen (<2.0) EU/dL Ur Leukocyte Esterase (NEGATIVE) Urine RBC (0-2/HPF) Urine WBC (0-5/HPF) Ur Epithelial Cells (NONE-FEW) Urine Bacteria (NEGATIVE) Urine Mucus (NONE-MOD) Urine Opiates Screen (NEGATIVE) Ur Oxycodone Screen (NEGATIVE) Urine Methadone Screen (NEGATIVE) Ur Barbiturates Screen (NEGATIVE) Ur Phencyclidine Scrn (NEGATIVE) Ur Amphetamine Screen (NEGATIVE) U Methamphetamines Scrn (NEGATIVE) U Benzodiazepines Scrn (NEGATIVE) U Cocaine Metab Screen (NEGATIVE) U Marijuana (THC) Screen (NEGATIVE) Ethyl Alcohol 149 mg/dL SARS-CoV-2 RNA (MESERET) (NEGATIVE) 10/01/20 10/01/20 10/01/20 Range/Units 12:28 12:28 12:28 WBC (4.0-11.0) K/uL RBC (4.30-5.90) M/uL Hgb (12.0-16.0) g/dL Hct (36.0-46.0) % MCV (80.0-98.0) fL MCH (27.0-32.0) pg MCHC (31.0-37.0) g/dL RDW Std Deviation (28.0-62.0) fl RDW Coeff of Sherry (11.0-15.0) % Plt Count (150-400) K/uL MPV (7.40-12.00) fL Neut % (Auto) (48.0-80.0) % Lymph % (Auto) (16.0-40.0) % [place] % (Auto) (0.0-15.0) % Eos % (Auto) (0.0-7.0) % Baso % (Auto) (0.0-1.5) % Neut # (Auto) (1.4-5.7) K/uL Lymph # (Auto) (0.6-2.4) K/uL [place] # (Auto) (0.0-0.8) K/uL Eos # (Auto) (0.0-0.7) K/uL Baso # (Auto) (0.0-0.1) K/uL Nucleated RBC % /100WBC Nucleated RBCs # K/uL ESR 6 (0-19) mm/hr INR 1.04 APTT 24.0 (18.6-31.3) SEC Sodium (136-145) mmol/L Potassium (3.5-5.1) mmol/L Chloride (98-107) mmol/L Carbon Dioxide (21.0-32.0) mmol/L BUN (7.0-18.0) mg/dL Creatinine (0.6-1.0) mg/dL Est Cr Clr Drug Dosing Estimated GFR (MDRD) ml/min Glucose (74-106) mg/dL Calcium (8.5-10.1) mg/dL Magnesium (1.8-2.4) mg/dL Total Bilirubin (0.2-1.0) mg/dL AST (15-37) IU/L ALT (14-63) IU/L Alkaline Phosphatase (46-116) U/L Troponin I (0.000-0.056) ng/mL Total Protein (6.4-8.2) g/dL Albumin (3.4-5.0) g/dL Globulin (2.6-4.0) g/dL Albumin/Globulin Ratio (0.9-1.6) TSH 3rd Generation (0.36-3.74) uIU/mL HCG, Qual (NEG) Urine Color Urine Appearance Urine pH (5.0-8.0) Ur Specific [place] (1.001-1.035) Urine Protein (NEGATIVE) mg/dL Urine Glucose (UA) (NEGATIVE) mg/dL Urine Ketones (NEGATIVE) mg/dL Urine Occult Blood (NEGATIVE) Urine Nitrite (NEGATIVE) Urine Bilirubin (NEGATIVE) Urine Urobilinogen (<2.0) EU/dL Ur Leukocyte Esterase (NEGATIVE) Urine RBC (0-2/HPF) Urine WBC (0-5/HPF) Ur Epithelial Cells (NONE-FEW) Urine Bacteria (NEGATIVE) Urine Mucus (NONE-MOD) Urine Opiates Screen (NEGATIVE) Ur Oxycodone Screen (NEGATIVE) Urine Methadone Screen (NEGATIVE) Ur Barbiturates Screen (NEGATIVE) Ur Phencyclidine Scrn (NEGATIVE) Ur Amphetamine Screen (NEGATIVE) U Methamphetamines Scrn (NEGATIVE) U Benzodiazepines Scrn (NEGATIVE) U Cocaine Metab Screen (NEGATIVE) U Marijuana (THC) Screen (NEGATIVE) Ethyl Alcohol mg/dL SARS-CoV-2 RNA (MESERET) (NEGATIVE) 10/01/20 10/01/20 10/01/20 Range/Units 12:28 13:01 13:01 WBC (4.0-11.0) K/uL RBC (4.30-5.90) M/uL Hgb (12.0-16.0) g/dL Hct (36.0-46.0) % MCV (80.0-98.0) fL MCH (27.0-32.0) pg MCHC (31.0-37.0) g/dL RDW Std Deviation (28.0-62.0) fl RDW Coeff of Sherry (11.0-15.0) % Plt Count (150-400) K/uL MPV (7.40-12.00) fL Neut % (Auto) (48.0-80.0) % Lymph % (Auto) (16.0-40.0) % [place] % (Auto) (0.0-15.0) % Eos % (Auto) (0.0-7.0) % Baso % (Auto) (0.0-1.5) % Neut # (Auto) (1.4-5.7) K/uL Lymph # (Auto) (0.6-2.4) K/uL [place] # (Auto) (0.0-0.8) K/uL Eos # (Auto) (0.0-0.7) K/uL Baso # (Auto) (0.0-0.1) K/uL Nucleated RBC % /100WBC Nucleated RBCs # K/uL ESR (0-19) mm/hr INR APTT (18.6-31.3) SEC Sodium (136-145) mmol/L Potassium (3.5-5.1) mmol/L Chloride (98-107) mmol/L Carbon Dioxide (21.0-32.0) mmol/L BUN (7.0-18.0) mg/dL Creatinine (0.6-1.0) mg/dL Est Cr Clr Drug Dosing Estimated GFR (MDRD) ml/min Glucose (74-106) mg/dL Calcium (8.5-10.1) mg/dL Magnesium 1.9 (1.8-2.4) mg/dL Total Bilirubin (0.2-1.0) mg/dL AST (15-37) IU/L ALT (14-63) IU/L Alkaline Phosphatase (46-116) U/L Troponin I (0.000-0.056) ng/mL Total Protein (6.4-8.2) g/dL Albumin (3.4-5.0) g/dL Globulin (2.6-4.0) g/dL Albumin/Globulin Ratio (0.9-1.6) TSH 3rd Generation (0.36-3.74) uIU/mL HCG, Qual (NEG) Urine Color YELLOW Urine Appearance HAZY Urine pH 6.5 (5.0-8.0) Ur Specific [place] <= 1.005 (1.001-1.035) Urine Protein NEGATIVE (NEGATIVE) mg/dL Urine Glucose (UA) NEGATIVE (NEGATIVE) mg/dL Urine Ketones NEGATIVE (NEGATIVE) mg/dL Urine Occult Blood MODERATE H (NEGATIVE) Urine Nitrite NEGATIVE (NEGATIVE) Urine Bilirubin NEGATIVE (NEGATIVE) Urine Urobilinogen 0.2 (<2.0) EU/dL Ur Leukocyte Esterase NEGATIVE (NEGATIVE) Urine RBC 3-6 (0-2/HPF) Urine WBC 0-2 (0-5/HPF) Ur Epithelial Cells FEW (NONE-FEW) Urine Bacteria FEW (NEGATIVE) Urine Mucus LIGHT (NONE-MOD) Urine Opiates Screen NEGATIVE (NEGATIVE) Ur Oxycodone Screen NEGATIVE (NEGATIVE) Urine Methadone Screen NEGATIVE (NEGATIVE) Ur Barbiturates Screen NEGATIVE (NEGATIVE) Ur Phencyclidine Scrn NEGATIVE (NEGATIVE) Ur Amphetamine Screen POSITIVE (NEGATIVE) U Methamphetamines Scrn POSITIVE (NEGATIVE) U Benzodiazepines Scrn NEGATIVE (NEGATIVE) U Cocaine Metab Screen NEGATIVE (NEGATIVE) U Marijuana (THC) Screen NEGATIVE (NEGATIVE) Ethyl Alcohol mg/dL SARS-CoV-2 RNA (MESERET) (NEGATIVE) 10/01/20 10/02/20 10/02/20 Range/Units 13:29 05:31 05:31 WBC 5.37 (4.0-11.0) K/uL RBC 4.34 (4.30-5.90) M/uL Hgb 13.7 (12.0-16.0) g/dL Hct 40.9 (36.0-46.0) % MCV 94.2 (80.0-98.0) fL MCH 31.6 (27.0-32.0) pg MCHC 33.5 (31.0-37.0) g/dL RDW Std Deviation 46.9 (28.0-62.0) fl RDW Coeff of Sherry 14 (11.0-15.0) % Plt Count 235 (150-400) K/uL MPV 10.10 (7.40-12.00) fL Neut % (Auto) 67.7 (48.0-80.0) % Lymph % (Auto) 23.3 (16.0-40.0) % [place] % (Auto) 6.9 (0.0-15.0) % Eos % (Auto) 1.7 (0.0-7.0) % Baso % (Auto) 0.4 (0.0-1.5) % Neut # (Auto) 3.6 (1.4-5.7) K/uL Lymph # (Auto) 1.3 (0.6-2.4) K/uL [place] # (Auto) 0.4 (0.0-0.8) K/uL Eos # (Auto) 0.1 (0.0-0.7) K/uL Baso # (Auto) 0.0 (0.0-0.1) K/uL Nucleated RBC % 0.0 /100WBC Nucleated RBCs # 0 K/uL ESR (0-19) mm/hr INR APTT (18.6-31.3) SEC Sodium 138 (136-145) mmol/L Potassium 3.6 (3.5-5.1) mmol/L Chloride 104 (98-107) mmol/L Carbon Dioxide 22.6 (21.0-32.0) mmol/L BUN 5 L (7.0-18.0) mg/dL Creatinine 0.6 (0.6-1.0) mg/dL Est Cr Clr Drug Dosing 99.02 Estimated GFR (MDRD) > 60.0 ml/min Glucose 67 L (74-106) mg/dL Calcium 7.9 L (8.5-10.1) mg/dL Magnesium (1.8-2.4) mg/dL Total Bilirubin 1.0 (0.2-1.0) mg/dL AST 27 (15-37) IU/L ALT 36 (14-63) IU/L Alkaline Phosphatase 63 (46-116) U/L Troponin I (0.000-0.056) ng/mL Total Protein 6.3 L (6.4-8.2) g/dL Albumin 3.3 L (3.4-5.0) g/dL Globulin 3.0 (2.6-4.0) g/dL Albumin/Globulin Ratio 1.1 (0.9-1.6) TSH 3rd Generation (0.36-3.74) uIU/mL HCG, Qual (NEG) Urine Color Urine Appearance Urine pH (5.0-8.0) Ur Specific [place] (1.001-1.035) Urine Protein (NEGATIVE) mg/dL Urine Glucose (UA) (NEGATIVE) mg/dL Urine Ketones (NEGATIVE) mg/dL Urine Occult Blood (NEGATIVE) Urine Nitrite (NEGATIVE) Urine Bilirubin (NEGATIVE) Urine Urobilinogen (<2.0) EU/dL Ur Leukocyte Esterase (NEGATIVE) Urine RBC (0-2/HPF) Urine WBC (0-5/HPF) Ur Epithelial Cells (NONE-FEW) Urine Bacteria (NEGATIVE) Urine Mucus (NONE-MOD) Urine Opiates Screen (NEGATIVE) Ur Oxycodone Screen (NEGATIVE) Urine Methadone Screen (NEGATIVE) Ur Barbiturates Screen (NEGATIVE) Ur Phencyclidine Scrn (NEGATIVE) Ur Amphetamine Screen (NEGATIVE) U Methamphetamines Scrn (NEGATIVE) U Benzodiazepines Scrn (NEGATIVE) U Cocaine Metab Screen (NEGATIVE) U Marijuana (THC) Screen (NEGATIVE) Ethyl Alcohol mg/dL SARS-CoV-2 RNA (MESERET) NEGATIVE (NEGATIVE) Med Orders - Current: Current Medications Ondansetron HCl (Ondansetron 4 Mg/2 Ml Sdv) 4 mg IVPUSH Q4H PRN PRN Reason: Nausea Sodium Chloride (Sodium Chloride 0.9% 10 Ml Syringe) 10 ml FLUSH ASDIRECTED PRN PRN Reason: Keep Vein Open Last Admin: 10/01/20 12:51 Dose: 10 ml Documented by: Sodium Chloride (Sodium Chloride 0.9% 2.5 Ml Syringe) 2.5 ml FLUSH ASDIRECTED PRN PRN Reason: Keep Vein Open Last Admin: 10/01/20 12:51 Dose: 2.5 ml Documented by: Thiamine HCl (Thiamine 200 Mg/2 Ml Mdv) 100 mg IVPUSH DAILY [facility] Last Admin: 10/02/20 08:49 Dose: 100 mg Documented by: Discontinued Medications Gadobenate Dimeglumine (Gadobenate Dimeglumine 529 Mg/Ml 20 Ml Sdv) 20 ml IVPUSH ONETIME STA Stop: 10/01/20 14:30 Last Admin: 10/01/20 14:31 Dose: 13 ml Documented by: Sodium Chloride (Normal Saline) 1,000 mls @ 999 mls/hr IV .Bolus ONE Stop: 10/01/20 13:31 Last Admin: 10/01/20 12:51 Dose: 999 mls/hr Documented by: Sodium Chloride (Normal Saline) 1,000 mls @ 125 mls/hr IV ASDIRECTED TIERRA Stop: 10/01/20 22:14 Last Admin: 10/01/20 15:09 Dose: 125 mls/hr Documented by: Iopamidol (Iopamidol 755 Mg/Ml 500 Ml Multipack Bottle) 100 ml IVPUSH ONETIME STA Stop: 10/01/20 14:46 Last Admin: 10/01/20 14:47 Dose: 100 ml Documented by: Potassium Chloride (Potassium Chloride 20 Meq Tab.Er) 40 meq PO ONETIME ONE Stop: 10/01/20 14:07 Last Admin: 10/01/20 15:09 Dose: 40 meq Documented by:
== END 2020-10-02 11:35 | disposition home or self-care (01) ==
LOC: MW.ED 12:26 → INTOOBSV 13:41 → MW.MS 13:41 → UNDOADMIN 15:01
PROVIDERS: ADMIT Internal Medicine; ATTEND Internal Medicine
DX: R20.0 Anesthesia of skin (principal); R53.1 Weakness; R29.810 Facial weakness; H91.92 Unspecified hearing loss, left ear; I63.9 Cerebral infarction, unspecified; F15.10 Other stimulant abuse, uncomplicated; F10.10 Alcohol abuse, uncomplicated; Z20.822 Contact with and (suspected) exposure to COVID-19; Z88.0 Allergy status to penicillin; Y90.6 Blood alcohol level of 120-199 mg/100 ml
CPT/HCPCS: 36415; 70450; 70496; 70498; 70553; 71045; 80053; 80305; 80307; 81001; 83735; 84443; 84484; 84703; 85025; 85610; 85652; 85730; 87635; 93005; 99285; A9270; A9577; J3411; J7030; Q9967; 96374; 96376; 99291; G0378; U0002

== ENCOUNTER 2021-05-26 22:04 | Emergency (ER) | payer SELFPAY ==
[2021-05-26] MEDS ORDERED: Iopamidol 755 MG/ML 500 ML Multipack Bottle IVPUSH STA (22:28)
[2021-05-26 22:37] LABS: BLOOD UREA NITROGEN,BUN 11 mg/dL (7.0-18.0); CARBON DIOXIDE,CO2 25.4 mmol/L (21.0-32.0); CHLORIDE,CL 105 mmol/L (98-107); GLUCOSE RANDOM 109 mg/dL (74-106); POTASSIUM,K 4.6 mmol/L (3.5-5.1); SODIUM,NA 142 mmol/L (136-145)
[2021-05-26] MEDS ORDERED: Sodium Chloride 0.9% 1,000 ML IV ONE ×2 (23:00→23:01)
== END 2021-05-27 01:30 | disposition home or self-care (01) ==
LOC: MW.ED 22:04
DX: I67.1 Cerebral aneurysm, nonruptured (principal); F15.10 Other stimulant abuse, uncomplicated; F10.10 Alcohol abuse, uncomplicated; J44.9 Chronic obstructive pulmonary disease, unspecified; Z88.0 Allergy status to penicillin; Z20.822 Contact with and (suspected) exposure to COVID-19; Y90.8 Blood alcohol level of 240 mg/100 ml or more
CPT/HCPCS: 36415; 36600; 70450; 70496; 70498; 71045; 80053; 80305; 80307; 81003; 82803; 83605; 83735; 84439; 84443; 84484; 84703; 85025; 87635; 93005; 99285; J7030; Q9967; U0002

== ENCOUNTER 2022-08-11 08:04 | Emergency (ER) | payer BC ==
[2022-08-11] MEDS ORDERED: Ondansetron 4 MG/2 ML SDV IVPUSH ONE (08:27)
[2022-08-11] MEDS ORDERED: diphenhydrAMINE 50 MG/ML SDV IVPUSH ONE (08:44)
[2022-08-11] MEDS ORDERED: Prochlorperazine 10 MG/2 ML SDV IVPUSH ONE (08:44)
[2022-08-11] MEDS ORDERED: Lactated Ringers 1,000 ML IV SCH (08:45)
[2022-08-11 08:56] LABS: BASOPHILS PERCENT AUTO 0.5 % (0.0-1.5); EOSINOPHILS PERCENT AUTO 0.8 % (0.0-7.0); HEMATOCRIT 47.8 % (36.0-46.0); HEMOGLOBIN 16.4 g/dL (12.0-16.0); LYMPHOCYTES ABSOLUTE AUTO 0.9 K/uL (0.6-2.4); MEAN CORPUSCULAR HEMOGLOBIN 33.3 pg (27.0-32.0); MEAN CORPUSCULAR HGB CONC 34.3 g/dL (31.0-37.0); MONOCYTES ABSOLUTE AUTO 0.3 K/uL (0.0-0.8); MONOCYTES PERCENT AUTO 6.8 % (0.0-15.0); NEUTROPHILS ABSOLUTE AUTO 2.8 K/uL (1.4-5.7); NEUTROPHILS PERCENT AUTO 68.9 % (48.0-80.0); NRBC ABSOLUTE 0 K/uL; PLATELET COUNT,PLT 190 K/uL (150-400); RED BLOOD CELL COUNT 4.93 M/uL (4.30-5.90)
[2022-08-11 09:27] LABS: ALBUMIN 3.9 g/dL (3.4-5.0); BILIRUBIN TOTAL 0.3 mg/dL (0.2-1.0); CALCIUM 9.1 mg/dL (8.5-10.1); CARBON DIOXIDE,CO2 24.1 mmol/L (21.0-32.0); CREATININE 0.8 mg/dL (0.6-1.0); EST CRCL DRUG DOSING (CG) 73.46 mL/min; POTASSIUM,K 3.5 mmol/L (3.5-5.1); PROTEIN TOTAL,TP 7.8 g/dL (6.4-8.2)
== END 2022-08-11 10:05 | disposition home or self-care (01) ==
LOC: MW.ED 08:04
DX: R51.9 Headache, unspecified (principal); R11.10 Vomiting, unspecified; R10.13 Epigastric pain; J44.9 Chronic obstructive pulmonary disease, unspecified; F17.210 Nicotine dependence, cigarettes, uncomplicated; Z88.0 Allergy status to penicillin
CPT/HCPCS: 36415; 70450; 80053; 83735; 85025; 96361; 96374; 96375; 99284; J0780; J1200; J2405; J7120

== ENCOUNTER 2023-10-23 19:40 | Emergency (ER) | payer BC | END 2023-10-23 21:15 | disposition left against medical advice (07) | LOC: MW.ED 19:40 | DX: F32.A Depression, unspecified (principal); J44.9 Chronic obstructive pulmonary disease, unspecified; Z79.899 Other long term (current) drug therapy; Z88.0 Allergy status to penicillin; Z75.8 Other problems related to medical facilities and other health care | CPT/HCPCS: 93005; 99284 ==